=== PATIENT | male | born 1995 | race Two or more races ===

== ENCOUNTER → 2018-05-18 20:18 | Emergency (ER) | payer OTHER ==
[~2018-05-18 20:18] MED LIST: NS 0.9% 1000 ML* 1,000 ML IV ONE; Ondansetron INJ* 2 MG/ML VIAL IV ONE; Ondansetron ODT TAB* 4 MG PO ONE
--- NOTE | 2018-05-18 20:52 | ED ---
Abdominal Pain/Male - HPI Summary HPI Summary: Pt is a 23 y/o M presenting to the ED with a chief complaint of vomiting onset 0400 this morning. He thinks he has food poisoning from a burger he ate yesterday around 1999. Pt reports some tachycardia, shortness of breath, feeling hot, chills, dizziness, nausea, two episodes of vomiting, and four episodes of watery diarrhea. The pt denies blood in diarrhea or hematemesis, abd pain, or hx of GI disorders, drug use, smoking, or alcohol use. Note that the pt travels frequently to his [place] country of [facility], in which cholera and malaria exist but he has never had it. - History of Current Complaint Chief Complaint: EDNauseaVomitDiarrh Stated Complaint: POSS FOOD POISONING Time Seen by Provider: 05/18/18 20:43 Hx Obtained From: Patient Onset/Duration: Sudden Onset, Lasting Hours, Still Present Timing: Intermittent Severity Initially: Moderate Severity Currently: Mild Pain Intensity: 0 Pain Scale Used: 0-10 Numeric Aggravating Factor(s): Food Alleviating Factor(s): Nothing Associated Signs And Symptoms: Positive: Dizzy, Decreased Appetite, Nausea, Vomiting, Diarrhea. Negative: Blood in Stool - Allergies/Home Medications Allergies/Adverse Reactions: Allergies Allergy/AdvReac Type Severity Reaction Status Date / Time No Known Allergies Allergy Verified 05/18/18 20:23 PMH/Surg Hx/FS Hx/Imm Hx Previously Healthy: Yes Cardiovascular History: Denies: Hx Hypertension GI History: Denies: Hx Gastroesophageal Reflux Disease Infectious Disease History: No Infectious Disease History: Reports: Traveled Outside the [place] in Last 30 Days - [facility] - Family History Known Family History: Positive: Cardiac Disease, Diabetes - Social History Occupation: Student Lives: Dormitory/Roommates Alcohol Use: None Substance Use Type: Reports: None Smoking Status (MU): Never Smoked Tobacco Review of Systems Negative: Fever Positive: Shortness Of Breath Positive: Vomiting, Diarrhea, Nausea. Negative: Abdominal Pain All Other Systems Reviewed And Are Negative: Yes Physical Exam - Summary Physical Exam Summary: Appearance: Well appearing, no pain distress Skin: warm, dry, reflects adequate perfusion Head/face: normal Eyes: EOMI, YOKASTA ENT: mucous membranes moist Neck: supple, non-tender Respiratory: CTA, breath sounds present Cardiovascular: RRR, pulses symmetrical Abdomen: non-tender, soft Bowel Sounds: present Musculoskeletal: normal, strength/ROM intact Neuro: normal, sensory motor intact, A&Ox3 Triage Information Reviewed: Yes Vital Signs On Initial Exam: Initial Vitals Temp Pulse Resp BP Pulse Ox 99.0 F 115 16 106/59 96 05/18/18 20:20 05/18/18 20:20 05/18/18 20:20 05/18/18 20:20 05/18/18 20:20 Vital Signs Reviewed: Yes Diagnostics - Vital Signs Vital Signs Temp Pulse Resp BP Pulse Ox 05/18/18 20:20 99.0 F 115 16 106/59 96 - Laboratory Lab Statement: Any lab studies that have been ordered have been reviewed, and results considered in the medical decision making process. Abdominal Pain Fem Course/Dx - Course Course Of Treatment: Nurse's notes reviewed. Patient with abrupt onset of nausea vomiting and diarrhea. Possible food related which he feels is the cause versus viral. There is endemic gastroenteritis in the community. He also return from [place] 2 days ago but states that cholera is not common in his developed area of the country. He has never had cholera or malaria. Improved with IV fluids. - Diagnoses Differential Diagnosis/HQI/PQRI: Other - Traveler's diarrhea, gastroenteritis, food poisoning, cholera or exotic illness Provider Diagnoses: Gastroenteritis Discharge - Sign-Out/Discharge Documenting (check all that apply): Patient Departure - home - Discharge Plan Condition: Improved Disposition: HOME Prescriptions: Loperamide CAP* [Imodium CAP*] 2 mg PO Q4H PRN #20 cap MDD 6 PRN Reason: Diarrhea Ondansetron ODT TAB* [Zofran 4 MG Odt TAB*] 4 mg PO Q6H PRN #12 tab.odt PRN Reason: Nausea Patient Education Materials: Gastroenteritis (ED) Referrals: [facility] [Provider Group] [facility] [Outside] Additional Instructions: Fletcher diet as tolerated. Drink plenty of fluids. Gatorade G2 may help best. Return with blood in diarrhea, unable to keep down fluids, week/dizzy, worse, new symptoms or other concerns. [facility] - Billing Disposition and Condition Condition: IMPROVED Disposition: Home - Attestation Statements Document Initiated by Scribe: Yes Documenting Scribe: Betty Dozier Provider For Whom Scribe is Documenting (Include Credential): Lloyd Dow MD. Scribe Attestation: Betty Arceo, scribed for Lloyd Dow MD. on 05/18/18 at 2246. Scribe Documentation Reviewed: Yes Provider Attestation: The documentation as recorded by the scribe, Betty Dozier accurately reflects the service I personally performed and the decisions made by Lloyd lemus MD. Status of Scribe Document: Viewed
[2018-05-18 22:04] VITALS: BP 132/56
== END | disposition home or self-care (01) ==
LOC: ED 20:18
DX: K52.9 Noninfective gastroenteritis and colitis, unspecified (principal); R42 Dizziness and giddiness; R11.2 Nausea with vomiting, unspecified; R19.7 Diarrhea, unspecified; R06.02 Shortness of breath
CPT/HCPCS: 96361; 96374; 99282; A9270-GY; J2405